=== PATIENT | female | born 1955 | race Caucasian/White ===

== ENCOUNTER 2018-10-27 02:21 | Emergency (ER) | payer BC ==
[~2018-10-27] VITALS: Ht 172.7 cm; Wt 85.0 kg
[2018-10-27] MEDS ORDERED: ondansetron/PF 4mg/2ml inj IV ONE (04:05)
[2018-10-27] MEDS ORDERED: morphine 4 MG/ML inj SYRINge IV ONE (04:05)
[2018-10-27] MEDS ORDERED: morphine 2 MG/ML inj. syringe IV PRN (04:05)
[2018-10-27] MEDS ORDERED: normal saline 1000ML IV soln IVB ONE (04:10)
[2018-10-27] MEDS ORDERED: MIDAZolam 5mg/ml 2ml vial IV ONE (04:10)
[2018-10-27] MEDS ORDERED: propofol 1000mg/100ml bottle 100 ML IV PRN (04:12)
[2018-10-27 04:17] LABS: BASOPHILS % (AUTO) 0 % (0-1); EOSINOPHILS # (AUTO) 0.2 X10'3 (0-0.9); EOSINOPHILS % (AUTO) 2.6 % (0-6); HEMATOCRIT 35.4 % (35.0-45.0); HEMOGLOBIN 12.2 g/dl (12.0-16.0); LYMPHOCYTES # (AUTO) 0.9 X10'3 (1.1-4.8); LYMPHOCYTES % (AUTO) 9.3 % (21-51); MEAN CORPUSCULAR HEMOGLOBIN 31.3 PG (27.0-31.0); MEAN CORPUSCULAR HGB CONC 34.4 % (33.0-36.5); MEAN CORPUSCULAR VOLUME 91.1 FL (78-98); MONOCYTES # (AUTO) 0.5 X10'3 (0-0.9); MONOCYTES % (AUTO) 4.7 % (2-12); NEUTROPHILS % (AUTO) 83.4 % (42-75); PLATELET COUNT 247 X10'3 (140-440); RED BLOOD COUNT 3.89 X10'6 (4.20-5.60); RED CELL DISTRIBUTION WIDTH 12.4 % (11.5-14.5); WHITE BLOOD COUNT 9.6 X10'3 (4.5-11.0)
[2018-10-27] MEDS ORDERED: propofol 10mg/ml 20ml vial IV ONE (04:20)
[2018-10-27 04:32] LABS: ALANINE AMINOTRANSFERASE 52 U/L (12-78); ALBUMIN 3.9 G/DL (3.4-5.0); ALBUMIN/GLOBULIN RATIO 1.2 (1.1-1.5); ALKALINE PHOSPHATASE 112 IU/L (46-116); ANION GAP 14 (8-16); ASPARTATE AMINO TRANSFERASE 34 U/L (10-37); BILIRUBIN,TOTAL 0.2 MG/DL (0.1-1.0); BLOOD UREA NITROGEN 25 MG/DL (7-18); BUN/CREATININE RATIO 27.2 (6.6-38.0); CHLORIDE 104 MMOL/L (99-107); CREATININE 0.92 MG/DL (0.40-0.90); ETHANOL < 0.010 GM/DL (0.0-0.010); GLUCOSE 116 MG/DL (70-104); POTASSIUM 4.2 MMOL/L (3.5-5.1); SODIUM 140 MMOL/L (135-145); TOTAL CARBON DIOXIDE 22.3 MMOL/L (24-32); TOTAL PROTEIN 7.1 G/DL (6.4-8.2); eGFR 62 ML/MIN
[2018-10-27 04:44] LABS: INR 0.9 INR; PARTIAL THROMBOPLASTIN TIME 22 SECONDS (22-32); PROTHROMBIN TIME 9.6 SECONDS (9.0-12.0)
[2018-10-27] MEDS ORDERED: LISI-600 PO (05:01)
[2018-10-27] MEDS ORDERED: dextrose 5%-1/2 normal saline 1,000 ML IV SCH (05:09)
[2018-10-27] MEDS ORDERED: dicyclomine 10 MG capsule PO PRN (05:10)
[2018-10-27] MEDS ORDERED: haloperidol lactate 5mg/ml inj IM PRN (05:10)
[2018-10-27] MEDS ORDERED: metoclopramide 5 mg/ml inj IV PRN (05:10)
[2018-10-27] MEDS ORDERED: cyclobenzaprine 10mg tablet PO PRN (05:10)
[2018-10-27] MEDS ORDERED: diphenhydrAMINE 25mg capsule PO PRN (05:10)
[2018-10-27] MEDS ORDERED: ondansetron/PF 4mg/2ml inj IV PRN (05:10)
[2018-10-27] MEDS ORDERED: hydrALAZINE 20mg/ml inj. IV PRN (05:10)
[2018-10-27] MEDS ORDERED: HYDROcodone/acetaminophen 10/325mg tab PO PRN (05:10)
[2018-10-27] MEDS ORDERED: loperamide 2mg capsule PO PRN (05:10)
[2018-10-27] MEDS ORDERED: LORazepam 2 mg/ml vial IV PRN (05:10)
[2018-10-27] MEDS ORDERED: dextrose 50%-water 50ml dispensing syringe IV PRN (05:10)
[2018-10-27] MEDS ORDERED: diphenhydrAMINE 50 mg/ml inj IV PRN (05:10)
[2018-10-27] MEDS ORDERED: acetaminophen 650mg rectal suppository RC PRN (05:10)
[2018-10-27] MEDS ORDERED: HYDROmorphone 1 mg/ml syringe IV PRN (05:10)
[2018-10-27] MEDS ORDERED: bisacodyl 10mg suppository rectal RC PRN (05:10)
[2018-10-27] MEDS ORDERED: magnesium hydroxide 30ml (MOM) UD suspension PO PRN (05:10)
[2018-10-27] MEDS ORDERED: haloperidol 5mg tablet PO PRN (05:10)
[2018-10-27] MEDS ORDERED: acetaminophen 325mg tablet PO PRN ×2 (05:10)
[2018-10-27] MEDS ORDERED: morphine 4 MG/ML inj SYRINge IV PRN (05:10)
[2018-10-27] MEDS ORDERED: mag hydrox/Alum hydrox/simeth 30ml oral suspension PO PRN (05:10)
--- NOTE | 2018-10-27 05:17 | NUR ---
Patient has returned to baseline and is awake, alert, and oriented with no pain or nausea.
[2018-10-27] MEDS ORDERED: HYDR-4383 PO (05:38)
--- NOTE | 2018-10-27 05:58 | NUR ---
CALLED [facility] FOR TRANSPORTATION, LEFT MESSAGE ON BOTH PHONES # [phone] AND [phone]
[2018-10-27 06:04] VITALS: BP 110/60
[2018-10-27] MEDS ORDERED: lisinopril 10 MG tablet PO SCH (08:00)
[2018-10-27] MEDS ORDERED: pantoprazole 40 MG vial IV SCH (08:00)
[2018-10-27] MEDS ORDERED: atenolol 50mg tablet PO SCH (08:00)
[2018-10-27] MEDS ORDERED: folic acid inj. 2 MG, thiamine inj. 100 MG, MVI, adult No.4 with vit. K 10 ML in dextro... IV SCH ×8 (08:00→20:00)
[2018-10-27] MEDS ORDERED: docusate sod 100mg capsule PO SCH (08:00)
[2018-10-27 10:49] LABS: PHOSPHORUS 3.3 MG/DL (2.3-4.5)
[2018-10-27] MEDS ORDERED: temazepam 15mg capsule PO PRN (21:00)
[2018-10-31] MEDS ORDERED: IBUP-1984 PO (14:26)
[2018-10-31] MEDS ORDERED: ACET-2119 PO (14:26)
[2018-10-31] MEDS ORDERED: HYDR-3965 PO (14:43)
== END 2018-10-27 06:00 | disposition home or self-care (01) ==
LOC: ER 02:23 → ED HOLD 05:15 → UNDOADMIN 05:15 → UNDODISIN 06:00 → ER 06:00
DX: S82.851A Displaced trimalleolar fracture of right lower leg, initial encounter for closed fracture (principal); S93.04XA Dislocation of right ankle joint, initial encounter; I10 Essential (primary) hypertension; F17.200 Nicotine dependence, unspecified, uncomplicated; X50.1XXA Overexertion from prolonged static or awkward postures, initial encounter; Y93.01 Activity, walking, marching and hiking; Y92.89 Other specified places as the place of occurrence of the external cause; Y99.8 Other external cause status
CPT/HCPCS: 27818; 36415; 71045; 73600; 80053; 80320; 83735; 83880; 84100; 85025; 85610; 85730; 93005; 96374; 96375; 99152; 99285; J2250; J2270; J2405; J2704; J7030; J3411; J3490; J7060

== ENCOUNTER 2018-11-02 05:17 | Day surgery (SDC) | payer BC ==
[2018-10-31 15:00] LABS: PRE OP INR 0.9 INR; PRE OP PROTIME 9.5 SECONDS (9.0-12.0)
[2018-10-31 15:05] LABS: ALBUMIN 3.8 G/DL (3.4-5.0); ALKALINE PHOSPHATASE 141 IU/L (46-116); BLOOD UREA NITROGEN 21 MG/DL (7-18); BUN/CREATININE RATIO 20.2 (6.6-38.0); CHLORIDE 103 MMOL/L (99-107); CREATININE 1.04 MG/DL (0.40-0.90); PRE OP ANION GAP 9 (8-16); PRE OP AST 63 U/L (10-37); PRE OP BILIRUB, TOTAL 0.4 MG/DL (0.0-1.0); PRE OP GLUCOSE 120 MG/DL (70-104); PRE OP POTASSIUM 4.1 MMOL/L (3.4-5.1); PRE OP SODIUM 139 MMOL/L (135-145); TOTAL CARBON DIOXIDE 27.2 MMOL/L (24-32); TOTAL PROTEIN 7.5 G/DL (6.4-8.2); eGFR 54 ML/MIN
[2018-10-31 15:06] LABS: BASOPHILS % (AUTO) 0.2 % (0-1); EOSINOPHILS # (AUTO) 0.3 X10'3 (0-0.9); EOSINOPHILS % (AUTO) 4.2 % (0-6); LYMPHOCYTES # (AUTO) 1.5 X10'3 (1.1-4.8); LYMPHOCYTES % (AUTO) 24.7 % (21-51); MEAN CORPUSCULAR HEMOGLOBIN 32.3 PG (27.0-31.0); MEAN CORPUSCULAR HGB CONC 35.1 % (33.0-36.5); MEAN PLATELET VOLUME 8.4 FL (7.4-10.4); MONOCYTES # (AUTO) 0.5 X10'3 (0-0.9); MONOCYTES % (AUTO) 8.2 % (2-12); NEUTROPHILS # (AUTO) 3.7 X10'3 (1.8-7.7); NEUTROPHILS % (AUTO) 62.7 % (42-75); PRE OP HEMATOCRIT 34.6 % (35.0-45.0); PRE OP HEMOGLOBIN 12.1 g/dL (12.0-16.0); PRE OP PLATELET COUNT 271 X10'3 (140-440); RED BLOOD COUNT 3.76 X10'6 (4.20-5.60); RED CELL DISTRIBUTION WIDTH 11.5 % (11.5-14.5)
[2018-10-31 15:07] LABS: PRE OP ALT 88 U/L (30-65)
[2018-11-02] VITALS (7 sets, daily range): BP systolic 113–138; BP diastolic 67–91
[~2018-11-02] VITALS: Ht 172.7 cm; Wt 81.7 kg
[~2018-11-02 05:17] MED LIST: ACET-2119 PO; HYDR-3965 PO; IBUP-1984 PO; LISI-600 PO; ringers solution, lacted 1,000 ML IV SCH
[2018-11-02] MEDS ORDERED: famotidine 20mg tablet PO ONE (05:30)
[2018-11-02] MEDS ORDERED: cefazolin/dext.iso 2gm/50ml 50 ML IV ONE (06:00)
[2018-11-02] MEDS ORDERED: oxyCODONE SR 10mg (sust. release) tab PO SCH (06:00)
[2018-11-02] MEDS ORDERED: metoclopramide 5 mg/ml inj IV ONE (06:00)
[2018-11-02] MEDS ORDERED: gabapentin 300mg capsule PO ONE (06:00)
[2018-11-02] MEDS ORDERED: celeCOXIB 100mg capsule PO SCH (06:00)
[2018-11-02] MEDS ORDERED: acetaminophen 325mg tablet PO SCH (06:00)
[2018-11-02] MEDS ORDERED: LIDOcaine 1% (10mg/ml) 2ml vial ONE (06:46)
[2018-11-02] MEDS ORDERED: cloNIDine hcl/PF 100mcg/ml inj ONE (07:12)
[2018-11-02] MEDS ORDERED: ROPIVAcaine 0.5% (5mg/ml) 30ml vial ONE (07:12)
[2018-11-02] MEDS ORDERED: MIDAZolam 5mg/5ml vial ONE (07:15)
[2018-11-02] MEDS ORDERED: fentaNYL/PF 50MCG/1 ML 2ML syringe ONE (07:15)
[2018-11-02] MEDS ORDERED: meperidine/PF 25mg/ml syringe IV PRN ×3 (08:15)
[2018-11-02] MEDS ORDERED: proCHLORperazine 10 MG/2 ml inj IV PRN (08:15)
[2018-11-02] MEDS ORDERED: morphine 4 MG/ML inj SYRINge IV PRN ×2 (08:15)
[2018-11-02] MEDS ORDERED: ondansetron/PF 4mg/2ml inj IV PRN (08:15)
[2018-11-02] MEDS ORDERED: ringers solution, lacted 1,000 ML IV SCH (08:15)
[2018-11-02] MEDS ORDERED: propofol inj 20 ML IV ONE (09:07)
--- NOTE | 2018-11-02 09:10 | NUR ---
Received from OR via BED , accompanied by Anesthesiologist DR TURCIOS and report given by Anesthesiolgist. PATIENT WAKING UP, NO S/S OF PAIN, V/S WNL, NEUROVASCULAR CHECKS INTACT. PIV 20G TO FRANTZ , SCD ON, SPLINT BRACE CAST DRESSING TO RLE CDI.
--- NOTE | 2018-11-02 10:00 | NUR ---
PATIENT A&0X4 , DENIES OF PAIN, V/S WNL, NEUROVASCULAR CHECKS INTACT. PIV 20G TO FRANTZ D/C , SCD OFF, SPLINT BRACE CAST DRESSING TO RLE CDI. I HAVE REVIEWED D/C INSTRUCTIONS WITH PATIENT AND AND FAMILY AND THEY HAVE VERBALIZED UNDERSTANDING AND PATIENT D/C HOME WITH ALL BELONGING AND FAMILY GAVE TRANSPORT HOME.
== END 2018-11-02 10:00 | disposition home or self-care (01) ==
LOC: PAS 05:17
PROVIDERS: ATTEND Orthopaedic Surgery
DX: S82.851A Displaced trimalleolar fracture of right lower leg, initial encounter for closed fracture (principal); M19.90 Unspecified osteoarthritis, unspecified site; I10 Essential (primary) hypertension; R79.1 Abnormal coagulation profile; Z72.89 Other problems related to lifestyle; Z86.19 Personal history of other infectious and parasitic diseases; Z87.891 Personal history of nicotine dependence; Z79.891 Long term (current) use of opiate analgesic; Z79.1 Long term (current) use of non-steroidal anti-inflammatories (NSAID); Z98.890 Other specified postprocedural states; Z79.899 Other long term (current) drug therapy; W18.49XA Other slipping, tripping and stumbling without falling, initial encounter; Y93.89 Activity, other specified; Y92.89 Other specified places as the place of occurrence of the external cause; Y99.8 Other external cause status
CPT/HCPCS: 27822; 36415; 73600; 76001; 80053; 85025; 85610; 85730; A6222; A6449; C1713; J0690; J0735; J2250; J2704; J2765; J3010; J3370; J3490; A7000; J2795; J7120